=== PATIENT | female | born 1995 | race Caucasian/White ===

== ENCOUNTER → 2017-02-12 | Outpatient (CLI) | payer MEDICAID ==
[~2017-02-12] MED LIST: CALC-451 PO; DOCU-30 PO; HYDR25TA11 PO; IBUP-1222 PO; MOME17SP9 INH; ONDA8TAB9 PO; OXYC10TA6 PO; PRAZ1CAP2 PO; PREN1TAB27 PO; RESCUE INH; SERT50TA PO; SERT50TA5 PO; SULF1TAB24 PO
== END | disposition home or self-care (01) ==
LOC: STAR 10:04
PROVIDERS: ATTEND Obstetrics & Gynecology
DX: Z01.818 Encounter for other preprocedural examination (principal); N80.9 Endometriosis, unspecified; R10.2 Pelvic and perineal pain
CPT/HCPCS: 36415; 82565; 85025

== ENCOUNTER 2017-02-19 08:16 | Day surgery (SDC) | payer MEDICAID ==
[~2017-02-19] VITALS: Ht 154.9 cm; Wt 51.0 kg
[2017-02-19] MEDS ORDERED: LACTATED RINGERS 1,000 ML IV SCH (08:40)
[2017-02-19 08:42] VITALS: BP 115/78
[2017-02-19 09:35] LABS: HCG UR OBC PASS
[2017-02-19] MEDS ORDERED: FENTANYL PF 250 MCG/5ML ONE (10:07)
[2017-02-19] MEDS ORDERED: FLUORESCEIN SODIUM 500 MG/5 ML ONE (10:23)
[2017-02-19] MEDS ORDERED: BUPIVACAINE/PF-EPI 0.25% 1:200K ONE (10:24)
[2017-02-19] MEDS ORDERED: DEXAMETHASONE 4 MG/ML, 1ML ONE (10:35)
[2017-02-19] MEDS ORDERED: ROCURONIUM 10 MG/ML ONE (10:35)
[2017-02-19] MEDS ORDERED: PROPOFOL 10 MG/ML, 20ML ONE (10:35)
[2017-02-19] MEDS ORDERED: GLYCOPYRROLATE 0.2MG/1ML ONE (10:35)
[2017-02-19] MEDS ORDERED: SUCCINYLCHOLINE 20 MG/ML, 10ML ONE (10:35)
[2017-02-19] MEDS ORDERED: CEFAZOLIN 1,000 MG ONE (10:35)
[2017-02-19] MEDS ORDERED: NEOSTIGMINE 1 MG/ML, 10ML ONE (10:35)
[2017-02-19] MEDS ORDERED: MEPERIDINE/PF 25MG/0.5ML IVPush PRN (11:30)
[2017-02-19] MEDS ORDERED: PROMETHAZINE 25 MG/ML, 1ML IV PRN (11:30)
[2017-02-19] MEDS ORDERED: hydrALAzine 20 MG/ML, 1ML IV PRN (11:30)
[2017-02-19] MEDS ORDERED: ONDANSETRON 2MG/ML, 2ML IVPush PRN (11:30)
[2017-02-19] MEDS ORDERED: OXYcodone 5 MG/5 ML ORAL.SOL UDC PO PRN (11:30)
[2017-02-19] MEDS ORDERED: LABETALOL 5MG/ML, 20ML IV PRN (11:30)
[2017-02-19] MEDS ORDERED: MIDAZOLAM 1 MG/ML, 2ML IV PRN (11:30)
[2017-02-19] MEDS ORDERED: OXYcodone 5 MG/5 ML ORAL.SOL UDC ONE (12:31)
[2017-02-19] MEDS ORDERED: FENTANYL PF 100 MCG/2ML ONE (12:31)
[2017-02-19] MEDS ORDERED: MEPERIDINE/PF 25MG/0.5ML ONE (12:31)
[2017-02-19] MEDS: FENTANYL PF 100 MCG/2ML IV PRN ×2 (12:51→13:29)
[2017-02-19] MEDS ORDERED: HYDROmorphone 2 MG/ML, 1ML ONE (13:32)
[2017-02-19] MEDS: HYDROmorphone 1 MG/ML, 1ML IV PRN ×4 (13:34→13:59)
[2017-02-19] MEDS ORDERED: OXYcodone/APAP 5/325MG TABLET ONE (16:55)
[2017-02-19] MEDS ORDERED: OXYcodone/APAP 5/325MG TABLET PO PRN (17:00)
== END 2017-02-19 17:50 | disposition home or self-care (01) ==
LOC: OUT 08:16
PROVIDERS: ATTEND Obstetrics & Gynecology
DX: N80.0 Endometriosis of uterus (principal); N80.2 Endometriosis of fallopian tube; N80.1 Endometriosis of ovary; D28.2 Benign neoplasm of uterine tubes and ligaments; N83.02 Follicular cyst of left ovary; I10 Essential (primary) hypertension; J45.909 Unspecified asthma, uncomplicated; G43.009 Migraine without aura, not intractable, without status migrainosus; Z87.440 Personal history of urinary (tract) infections; Z87.442 Personal history of urinary calculi; Z98.51 Tubal ligation status; Z72.89 Other problems related to lifestyle
CPT/HCPCS: 58571; 81025; 88307; J0330; J0690; J1100; J1170; J2175; J2704; J2710; J3010; J3490; J7120

== ENCOUNTER 2017-02-21 05:32 | Emergency (ER) | payer MEDICAID ==
[~2017-02-21] VITALS: Ht 154.9 cm; Wt 52.4 kg
[2017-02-21] MEDS ORDERED: ONDANSETRON 2MG/ML, 2ML ONE (06:26)
[2017-02-21] MEDS ORDERED: MORPHINE SULFATE 4 MG/ML, 1ML ONE ×2 (06:26→07:45)
[2017-02-21] MEDS ORDERED: ONDANSETRON 2MG/ML, 2ML IVPush ONE (06:30)
[2017-02-21] MEDS ORDERED: OMNIPAQUE 350 MG/ML, 100ML BOTTLE ONE (06:30)
[2017-02-21] MEDS ORDERED: SODIUM CHLORIDE FLUSH 10ML SYR IVF ONE (06:30)
[2017-02-21] MEDS ORDERED: SODIUM CHLORIDE 0.9% 1,000ML IVBOLUS ONE (06:30)
[2017-02-21] MEDS: MORPHINE SULFATE 4 MG/ML, 1ML IVPush PRN ×2 (06:32→07:47)
[2017-02-21 06:49] LABS: ASPARTATE AMINO TRANSFERASE 12 U/L (15-37); BLOOD UREA NITROGEN 8 mg/dL (7-18)
[2017-02-21 07:52] LABS: PATH.CAST-FLAG NOT PRESENT; SPERM-FLAG NOT PRESENT; SRC-FLAG NOT PRESENT; XTAL-FLAG NOT PRESENT; YLC-FLAG NOT PRESENT
[2017-02-21] MEDS ORDERED: METHYLNALTREXONE 12 MG/0.6 ML SQ ONE (08:30)
[2017-02-21 09:18] VITALS: BP 118/64
== END 2017-02-21 09:20 | disposition home or self-care (01) ==
LOC: ED 09:05
DX: K59.00 Constipation, unspecified (principal); Z90.710 Acquired absence of both cervix and uterus; J45.909 Unspecified asthma, uncomplicated; G43.909 Migraine, unspecified, not intractable, without status migrainosus; Z91.040 Latex allergy status
CPT/HCPCS: 36415; 74177; 80053; 81001; 85025; 96361; 96372; 96374; 96375; 96376; 99285; J2405; J7030; Q9967

== ENCOUNTER 2017-07-11 18:25 | Emergency (ER) | payer BC, MEDICAID ==
[~2017-07-11] VITALS: Ht 154.9 cm; Wt 52.3 kg
[~2017-07-11 18:25] MED LIST changes: +DOCU-131 PO; -DOCU-30 PO
[2017-07-11 18:27] VITALS: BP 111/71
== END 2017-07-11 19:11 | disposition home or self-care (01) ==
LOC: ED 19:05
DX: K08.89 Other specified disorders of teeth and supporting structures (principal); J45.909 Unspecified asthma, uncomplicated; Z88.5 Allergy status to narcotic agent
CPT/HCPCS: 99283

== ENCOUNTER 2017-10-01 17:20 | Emergency (ER) | payer BC ==
[~2017-10-01] VITALS: Ht 154.9 cm; Wt 49.4 kg
[2017-10-01] MEDS ORDERED: SODIUM CHLORIDE FLUSH 10ML SYR IVF ONE (18:00)
[2017-10-01] MEDS ORDERED: ONDANSETRON 2MG/ML, 2ML IVPush ONE (18:00)
[2017-10-01] MEDS ORDERED: SODIUM CHLORIDE 0.9% 1,000ML IVBOLUS ONE (18:00)
[2017-10-01] MEDS ORDERED: ONDANSETRON 2MG/ML, 2ML ONE ×2 (18:12→18:23)
[2017-10-01 18:21] LABS: HEMATOCRIT 50.3 % (34.6-47.8); HEMOGLOBIN 16.8 g/dL (11.7-16.4); WHITE BLOOD COUNT 16.4 x10^3/uL (3.4-10)
[2017-10-01 18:34] LABS: ASPARTATE AMINO TRANSFERASE 12 U/L (15-37); BLOOD UREA NITROGEN 16 mg/dL (7-18)
[2017-10-01] MEDS ORDERED: ALBU18HF INH (19:06)
[2017-10-01 20:03] VITALS: BP 101/62
== END 2017-10-01 20:05 | disposition home or self-care (01) ==
LOC: ED 19:15
DX: E86.0 Dehydration (principal); R10.84 Generalized abdominal pain; D72.829 Elevated white blood cell count, unspecified; G43.909 Migraine, unspecified, not intractable, without status migrainosus; J45.909 Unspecified asthma, uncomplicated; Z90.710 Acquired absence of both cervix and uterus
CPT/HCPCS: 36415; 80053; 81001; 83690; 85025; 87086; 96361; 96374; 99284; J2405; J7030